=== PATIENT | female | born 1985 | race Caucasian/White ===

== ENCOUNTER 2016-07-13 07:50 | Emergency (ER) | payer BC ==
[2016-07-13 08:12] VITALS: BP 118/63
--- NOTE | 2016-07-13 08:59 | UC ---
Skin Complaint HPI - HPI Summary HPI Summary: The patient comes in today for: 1. Skin/nipple soreness: Onset: one week ago. Palliative/provocative: Nursing makes it worse. Not nursing makes it better. Quality: Soreness. Region: Bilateral nipples. Severity: Nursing 7/10, and when not nursin/10 Time: Comes and goes. Associated symptoms: Fevers: None. Lanolin helped in the past years ago. * - History of Current Complaint Chief Complaint: UCSkin Time Seen by Provider: 07/13/16 08:35 Stated Complaint: PERSONAL Hx Obtained From: Patient Hx Last Menstrual Period: 07/03/16 ?: No - Allergy/Home Medications Allergies/Adverse Reactions: Allergies Allergy/AdvReac Type Severity Reaction Status Date / Time [facility] Allergy Intermediate Hives Verified 07/13/16 08:06 Review of Systems Constitutional: Negative Skin: Rash Eyes: Negative ENT: Negative Respiratory: Negative Cardiovascular: Negative Gastrointestinal: Diarrhea - For the last 2 days. One stool a day. Genitourinary: Negative Motor: Negative All Other Systems Reviewed And Are Negative: Yes PMH/Surg Hx/FS Hx/Imm Hx Previously Healthy: No - "sensitive rectum." Endocrine History Of: Denies: Diabetes, Thyroid Disease, Hyperthyroidism, Hypothyroidism, Dyslipidemia Cardiovascular History Of: Denies: Cardiac Disorders, Hypertension, Pacemaker/ICD, Myocardial Infarction , Congestive Heart Failure, Atrial Fibrillation, Deep Vein Thrombosis, Bleeding Disorders Respiratory History Of: Denies: COPD, Asthma, Bronchitis, Pneumonia, Pulmonary Embolism GI/ History Of: Denies: Gastroesophageal Reflux, Ulcer, Gastrointestinal Bleed, Gall Bladder Disease, Kidney Stones, Diverticulitis, Renal Disease, Urosepsis Neurological History Of: Denies: TIA, CVA, Dementia, Seizures, Migraine Psychological History Of: Denies: Anxiety, Depression, Bipolar Disorder, Schizophrenia, Post Traumatic Stress Disorder Cancer History Of: Denies: Lung Cancer, Colorectal Cancer, Breast Cancer, Prostate Cancer, Cervical Cancer Other History Of: Negative For: HIV, Hepatitis B, Hepatitis C, Anticoagulant Therapy - Surgical History Surgical History: None - Family History Known Family History: Positive: Cardiac Disease, Hypertension - Social History Occupation: Employed Full-time Alcohol Use: None Substance Use Type: None Smoking Status (MU): Never Smoked Tobacco Physical Exam Triage Information Reviewed: Yes Appearance: Well-Appearing, No Pain Distress, Well-Nourished Vital Signs: Initial Vital Signs Temp 97.8 F 07/13/16 08:06 Pulse 76 07/13/16 08:06 Resp 18 07/13/16 08:06 BP 118/63 07/13/16 08:06 Pulse Ox 100 07/13/16 08:06 Vital Signs Reviewed: Yes Eyes: Positive: Conjunctiva Clear. Negative: Discharge ENT: Positive: Hearing grossly normal. Negative: Pharyngeal erythema, Nasal congestion, Nasal drainage, TM bulging, TM dull, TM red, Tonsillar swelling, Tonsillar exudate Dental: Negative: Gross Decay/Caries @, Dental Fracture @ Neck: Positive: Supple, Nontender, No Lymphadenopathy. Negative: Nuchal Rigidity Respiratory: Positive: Lungs clear, No respiratory distress, No accessory muscle use. Negative: Crackles, Wheezing Cardiovascular: Positive: RRR, No Murmur Abdomen Description: Positive: Nontender, No Organomegaly, Soft. Negative: Distended, Guarding Musculoskeletal: Positive: Strength Intact, ROM Intact Neurological: Positive: Alert, Muscle Tone Normal Psychological: Positive: Age Appropriate Behavior, Consolable Skin: Positive: rashes - She has slightly edematous and erythematous nipples ( left worse than the right). There is a small fissure on the left with no signs of cellulitis or purulent drainage. Course/Dx - Diagnoses Provider Diagnoses: dermatitis Discharge - Discharge Plan Condition: Stable Disposition: HOME Patient Education Materials: Dermatitis (ED) Forms: *Work Release Referrals: Lisa Mc MD [Primary Care Provider] - Additional Instructions: Please use [id number] lanolin as needed. Use the prescription ointment only as needed. If you get worse, please be seen again.
== END 2016-07-13 09:16 | disposition home or self-care (01) ==
LOC: UCCORT 07:50
DX: L30.9 Dermatitis, unspecified (principal); Z88.1 Allergy status to other antibiotic agents
CPT/HCPCS: 99212; G0463

== ENCOUNTER 2016-09-21 21:29 | Emergency (ER) | payer BC ==
[2016-09-21 21:49] VITALS: BP 98/76
--- NOTE | 2016-09-21 21:52 | UC ---
Ear Complaint HPI - HPI Summary HPI Summary: The patient comes in today for: 1. Right tinnitus: Onset: "Just tonight." Palliative/provocative: Nothing makes it better or worse. Quality: Ringing Region: Right ear. Severity: 06/19 Time: Constant. Associated symptoms: Fevers: None. Vertigo: None. Meniere's: No history. * - History of Current Complaint Stated Complaint: RT EAR COMPLAINT Time Seen by Provider: 09/21/16 21:44 Hx Obtained From: Patient Hx Last Menstrual Period: 07/03/16 - Allergies/Home Medications Allergies/Adverse Reactions: Allergies Allergy/AdvReac Type Severity Reaction Status Date / Time Cefaclor [From [facility]] Allergy Intermediate Hives Verified 09/21/16 21:49 Home Medications: Home Medications NK [No Home Medications Reported] 09/21/16 [History Confirmed 09/21/16] PMH/Surg Hx/FS Hx/Imm Hx Previously Healthy: No Endocrine History Of: Denies: Diabetes, Thyroid Disease, Hyperthyroidism, Hypothyroidism, Dyslipidemia Cardiovascular History Of: Denies: Cardiac Disorders, Hypertension, Pacemaker/ICD, Myocardial Infarction , Congestive Heart Failure, Atrial Fibrillation, Deep Vein Thrombosis, Bleeding Disorders Respiratory History Of: Denies: COPD, Asthma, Bronchitis, Pneumonia, Pulmonary Embolism GI/ History Of: Denies: Gastroesophageal Reflux, Ulcer, Gastrointestinal Bleed, Gall Bladder Disease, Kidney Stones, Diverticulitis, Renal Disease, Urosepsis Neurological History Of: Denies: TIA, CVA, Dementia, Seizures, Migraine Psychological History Of: Denies: Anxiety, Depression, Bipolar Disorder, Schizophrenia, Post Traumatic Stress Disorder Cancer History Of: Denies: Lung Cancer, Colorectal Cancer, Breast Cancer, Prostate Cancer, Cervical Cancer Other History Of: Negative For: HIV, Hepatitis B, Hepatitis C, Anticoagulant Therapy - Surgical History Surgical History: None - Family History Known Family History: Positive: Cardiac Disease, Hypertension - Social History Alcohol Use: None Substance Use Type: None Smoking Status (MU): Never Smoked Tobacco Review of Systems Constitutional: Negative Skin: Negative Eyes: Negative ENT: Negative Respiratory: Negative Cardiovascular: Negative Gastrointestinal: Negative Genitourinary: Negative Motor: Negative All Other Systems Reviewed And Are Negative: Yes Physical Exam Triage Information Reviewed: Yes Appearance: Well-Appearing, No Pain Distress, Well-Nourished Vital Signs Reviewed: Yes Eyes: Positive: Conjunctiva Clear. Negative: Discharge ENT: Positive: Hearing grossly normal. Negative: Pharyngeal erythema, Nasal congestion, Nasal drainage, TM bulging, TM dull, TM red, Tonsillar swelling, Tonsillar exudate Dental: Negative: Gross Decay/Caries @, Dental Fracture @ Neck: Positive: Supple, Nontender, No Lymphadenopathy. Negative: Nuchal Rigidity Respiratory: Positive: Chest non-tender, Lungs clear, No respiratory distress, No accessory muscle use Cardiovascular: Positive: RRR, No Murmur Abdomen Description: Positive: Nontender, No Organomegaly, Soft. Negative: Distended, Guarding Musculoskeletal: Positive: Strength Intact, ROM Intact, No Edema Neurological: Positive: Alert, Muscle Tone Normal Psychological: Positive: Age Appropriate Behavior, Consolable Skin: Negative: rashes, breakdown Ear Complaint Course/Dx - Differential Dx/Diagnosis Differential Diagnosis/HQI/PQRI: Otitis Externa, Otitis Media Provider Diagnoses: Right tinnitis Discharge - Discharge Plan Condition: Stable Disposition: HOME Patient Education Materials: Tinnitus (ED) Additional Instructions: Please see one of the local ENT providers.
== END 2016-09-21 22:11 | disposition home or self-care (01) ==
LOC: UCCORT 21:29
DX: H93.11 Tinnitus, right ear (principal); Z88.1 Allergy status to other antibiotic agents
CPT/HCPCS: 99211; G0463

== ENCOUNTER 2017-01-23 09:30 | Emergency (ER) | payer BC ==
[2017-01-23 09:40] VITALS: BP 124/70
[2017-01-23] MEDS ORDERED: Ketorolac INJ* 30 MG/ML 1 ML VIAL IM ONE (09:49)
[2017-01-23] MEDS ORDERED: Dexamethasone IV* 4 MG/ML 1 ML (4 MG) IM ONE (09:50)
[2017-01-23] MEDS ORDERED: Acetaminophen TAB* 325 MG PO ONE (09:50)
--- NOTE | 2017-01-23 09:56 | UC ---
Throat Pain/Nasal Eugenio HPI - HPI Summary HPI Summary: Sore throat worsening over the last few days. she went ot the ed and dx with sore throat. no swab obtained. the Sore throat has worsened. - History of Current Complaint Chief Complaint: UCRespiratory Stated Complaint: THROAT SWELLING Time Seen by Provider: 01/23/17 09:40 Hx Obtained From: Patient Hx Last Menstrual Period: 2-3 days Onset/Duration: Gradual Onset Severity: Severe Cough: None Associated Signs & Symptoms: Positive: Dysphagia, Nasal Discharge, Fever. Negative: Wheezing, Hoarseness, Sinus Discomfort, Vomiting, Rash - Epiglottits Risk Factors Epiglottis Risk Factors: Negative - she has had all immunizations. - Allergies/Home Medications Allergies/Adverse Reactions: Allergies Allergy/AdvReac Type Severity Reaction Status Date / Time Cefaclor [From [facility]] Allergy Intermediate Hives Verified 01/23/17 09:40 Home Medications: Home Medications Acetaminophen TAB* [Tylenol TAB*] 1,000 mg PO Q6H PRN 01/23/17 [History Confirmed 01/23/17] Ibuprofen TAB* [Advil TAB*] 0 mg PO Q6H PRN 01/23/17 [History Confirmed 01/23/17 ] PMH/Surg Hx/FS Hx/Imm Hx Previously Healthy: Yes - no prior ent abcess. Other History Of: Negative For: HIV, Hepatitis B, Hepatitis C, Anticoagulant Therapy - Surgical History Surgical History: None - Family History Known Family History: Positive: Cardiac Disease, Hypertension - Social History Occupation: Employed Full-time Alcohol Use: None Substance Use Type: None Smoking Status (MU): Never Smoked Tobacco Review of Systems ENT: Sore Throat, Ear Ache All Other Systems Reviewed And Are Negative: Yes Physical Exam Triage Information Reviewed: Yes Appearance: Well-Appearing - she has some pain with swallowing but otherwise alert, still joking, non toxic and sitting uprightwithout tripod or severe distress., Obese Vital Signs: Initial Vital Signs Temp 100.9 F 01/23/17 09:34 Pulse 131 01/23/17 09:34 Resp 20 01/23/17 09:34 BP 124/70 01/23/17 09:34 Pulse Ox 98 01/23/17 09:34 Vital Signs Reviewed: Yes Eye Exam: Normal ENT: Positive: Pharyngeal erythema, Tonsillar swelling, Tonsillar exudate, Muffled/hoarse voice - slightly muffled voice.. Negative: Trismus Dental Exam: Normal Neck: Positive: Supple, Tenderness @ - mica submandibular tenderness and mild swelling. no uvula deviation, no tonsillar asymmetry.. Negative: Nuchal Rigidity Respiratory Exam: Normal Cardiovascular Exam: Normal Abdominal Exam: Normal Musculoskeletal Exam: Normal Neurological Exam: Normal Psychological Exam: Normal Skin Exam: Normal Throat Pain/Nasal Course/Dx - Course Course Of Treatment: this is most c/w tonsilitis. there is no evidence of ludwigs angina, epiglottitis or peritonsillar abcess. We will aggressivel manage with IM toradol, IM decadron and change antibiotic from azithromycin to augmentin. she has had hives with ceclor. she calls her mother who states she has been well with penicillin. - Differential Dx/Diagnosis Differential Diagnosis/HQI/PQRI: Epiglottitis, Foreign Body, Influenza, Laryngitis, Familia's Angina, Mononucleosis, Otitis Media, Peritonsillar Abscess , Pharyngitis, Sinusitis, Tonsillitis, URI Provider Diagnoses: tonsillitis. Discharge - Discharge Plan Condition: Good Disposition: HOME Prescriptions: Amoxicillin/Clavulanate TAB* [Augmentin TAB 875*] 875 mg PO BID #20 tab Fluconazole 100 MG TAB* [Diflucan 100 MG TAB*] 100 mg PO DAILY #3 tab Methylprednisolone [Medrol Dosepak 4 MG*] 4 mg PO .SEE BENNY INSTRUCTION #21 tab Patient Education Materials: Tonsillitis (ED) Forms: *Work Release Referrals: Lisa Mc MD [Primary Care Provider] - 1 Day
== END 2017-01-23 11:04 | disposition home or self-care (01) ==
LOC: UCCORT 09:30
DX: J03.90 Acute tonsillitis, unspecified (principal); R09.81 Nasal congestion; Z88.1 Allergy status to other antibiotic agents
CPT/HCPCS: 87651; 96372; 99212; A9270-GY; G0463; J1100; J1885

== ENCOUNTER 2017-02-21 17:59 | Emergency (ER) | payer BC ==
[2017-02-21 19:25] VITALS: BP 108/65
[2017-02-21] MEDS ORDERED: Amoxicillin/Clavulanate TAB* 875 MG PO ONE (19:40)
[2017-02-21] MEDS ORDERED: Ketorolac INJ* 60 MG/2 ML VIAL IM ONE (19:40)
--- NOTE | 2017-02-21 19:50 | UC ---
Throat Pain/Nasal Eugenio HPI - HPI Summary HPI Summary: THREE DAYS OF SORE THROAT FEVER. HAS HAD ONE MONTH OF ABDOMINAL PAIN BUT HAS PRIMARY CARE APPOINTMENT NEXT WEEK TO CONTINUE AQDDRESSING THE ISSUE; NO CHANGE IN SYMPTOMS OF CONCERN. HERE FOR SORE THROAT AND FEVER. - History of Current Complaint Chief Complaint: UCRespiratory Stated Complaint: FEVER/SORE THROAT Time Seen by Provider: 02/21/17 19:18 Hx Obtained From: Patient Hx Last Menstrual Period: 02/12/17 Onset/Duration: Gradual Onset, Lasting Days, Still Present Severity: Moderate Cough: None Associated Signs & Symptoms: Positive: Hoarseness, Fever - Epiglottits Risk Factors Epiglottis Risk Factors: Negative - Allergies/Home Medications Allergies/Adverse Reactions: Allergies Allergy/AdvReac Type Severity Reaction Status Date / Time Cefaclor [From [facility]] Allergy Intermediate Hives Verified 02/21/17 19:25 PMH/Surg Hx/FS Hx/Imm Hx Previously Healthy: Yes Other History Of: Negative For: HIV, Hepatitis B, Hepatitis C, Anticoagulant Therapy - Surgical History Surgical History: None - Family History Known Family History: Positive: Cardiac Disease, Hypertension - Social History Occupation: Employed Full-time Lives: With Family Alcohol Use: None Substance Use Type: None Smoking Status (MU): Never Smoked Tobacco - Immunization History Most Recent Influenza Vaccination: no Review of Systems Constitutional: Fever, Chills, Fatigue Skin: Negative Eyes: Negative ENT: Sore Throat Respiratory: Negative Cardiovascular: Negative Gastrointestinal: Negative Genitourinary: Negative Motor: Negative Neurovascular: Negative Musculoskeletal: Negative Neurological: Negative Psychological: Negative Is Patient Immunocompromised?: No All Other Systems Reviewed And Are Negative: Yes Physical Exam Triage Information Reviewed: Yes Appearance: Well-Appearing, No Pain Distress, Well-Nourished Vital Signs: Initial Vital Signs Temp 101.9 F 02/21/17 19:19 Pulse 112 02/21/17 19:19 Resp 18 02/21/17 19:19 BP 108/65 02/21/17 19:19 Pulse Ox 98 02/21/17 19:19 Vital Signs Reviewed: Yes Eye Exam: Normal ENT Exam: Normal ENT: Positive: Pharyngeal erythema, TM dull, Tonsillar exudate Dental Exam: Normal Neck exam: Normal Neck: Positive: Supple, Nontender, No Lymphadenopathy Respiratory Exam: Normal Respiratory: Positive: Chest non-tender, Lungs clear, Normal breath sounds, No respiratory distress, No accessory muscle use Cardiovascular Exam: Normal Cardiovascular: Positive: RRR, No Murmur, Pulses Normal, Brisk Capillary Refill Abdominal Exam: Normal Abdomen Description: Positive: Nontender, No Organomegaly Musculoskeletal Exam: Normal Musculoskeletal: Positive: Strength Intact, ROM Intact Neurological Exam: Normal Psychological Exam: Normal Skin Exam: Normal Throat Pain/Nasal Course/Dx - Differential Dx/Diagnosis Differential Diagnosis/HQI/PQRI: Pharyngitis, Sinusitis, Tonsillitis, URI Provider Diagnoses: STREP TONSILITIS Discharge - Discharge Plan Condition: Stable Disposition: HOME Prescriptions: Amoxicillin/Clavulanate TAB* [Augmentin TAB 875*] 875 mg PO BID #20 tab Patient Education Materials: Strep Throat (ED) Forms: *Work Release Referrals: Lisa Mc MD [Primary Care Provider] -
== END 2017-02-21 20:08 | disposition home or self-care (01) ==
LOC: UCCORT 17:59
DX: J02.0 Streptococcal pharyngitis (principal)
CPT/HCPCS: 87651; 96372; 99212; A9270-GY; G0463; J1885

== ENCOUNTER 2017-07-11 08:08 | Emergency (ER) | payer BC, OTHER ==
[2017-07-11 09:38] VITALS: BP 120/83
--- NOTE | 2017-07-11 10:00 | UC ---
Lower Extremity/Ankle HPI - HPI Summary HPI Summary: 32F with work injury. pt slipped and fell on the stairs at work injuring L ankle. pt was taken to the [facility] ED but at that time denied an xray. pt now requests an xray. [ End ] - History of Current Complaint Chief Complaint: UCTrauma Stated Complaint: WC-RT ANKLE INJURY Time Seen by Provider: 07/11/17 09:59 Hx Obtained From: Patient Hx Last Menstrual Period: 06/29/17 ?: No Onset/Duration: Sudden Onset Severity Initially: Moderate Severity Currently: Mild Pain Intensity: 0 - Allergies/Home Medications Allergies/Adverse Reactions: Allergies Allergy/AdvReac Type Severity Reaction Status Date / Time MS Cefaclor [From [facility]] Allergy Intermediate Hives Verified 07/11/17 09:38 PMH/Surg Hx/FS Hx/Imm Hx Previously Healthy: Yes Other History Of: Negative For: HIV, Hepatitis B, Hepatitis C, Anticoagulant Therapy - Surgical History Surgical History: None - Family History Known Family History: Positive: Cardiac Disease, Hypertension - Social History Occupation: Employed Full-time Alcohol Use: None Substance Use Type: None Smoking Status (MU): Never Smoked Tobacco - Immunization History Most Recent Influenza Vaccination: no Review of Systems Musculoskeletal: Arthralgia Is Patient Immunocompromised?: No All Other Systems Reviewed And Are Negative: Yes Physical Exam Triage Information Reviewed: Yes Appearance: Well-Appearing, No Pain Distress, Well-Nourished Vital Signs: Initial Vital Signs Temp 97.6 F 07/11/17 09:32 Pulse 81 07/11/17 09:32 Resp 18 07/11/17 09:32 BP 120/83 07/11/17 09:32 Pulse Ox 100 07/11/17 09:32 Vital Signs Reviewed: Yes Eyes: Positive: Conjunctiva Clear Musculoskeletal: Positive: Strength Intact, ROM Intact, No Edema, Other: - mild medial MTP tenderness. no effusion. no ecchymosis. no erythema. FROM. strength 5 /5 b/l LE. cap refill < 3 sec/ brisk peripheral pulses Neurological Exam: Normal Psychological Exam: Normal Skin Exam: Normal Lower Extremity Course/Dx - Course Course Of Treatment: iMPRESSION: NO ACUTE OSSEOUS INJURY. IF SYMPTOMS PERSIST, RECOMMEND REPEAT IMAGING. - Differential Dx/Diagnosis Differential Diagnosis/HQI/PQRI: Sprain, Strain Provider Diagnoses: right ankle/foot pain Discharge - Discharge Plan Condition: Good Disposition: HOME Patient Education Materials: Ankle Sprain (ED) Referrals: Lisa Mc MD [Primary Care Provider] - 4 Days Additional Instructions: Your xray today was negative no fracture is present. If your symptoms persist please return for follow up .
--- NOTE | 2017-07-11 10:47 | RAD ---
HISTORY: Pain status post fall COMPARISONS: None VIEWS: 3, Frontal, lateral, and oblique views of the right foot FINDINGS: BONE DENSITY: Normal. BONES: There is no displaced fracture. There are plantar and posterior calcaneal enthesophytes. JOINTS: There is no arthropathy. ALIGNMENT: There is no dislocation. SOFT TISSUES: Unremarkable. OTHER FINDINGS: None. IMPRESSION: NO ACUTE OSSEOUS INJURY. IF SYMPTOMS PERSIST, RECOMMEND REPEAT IMAGING.
== END 2017-07-11 11:10 | disposition home or self-care (01) ==
LOC: UCCORT 08:08
DX: M25.572 Pain in left ankle and joints of left foot (principal); M79.672 Pain in left foot; W01.0XXA Fall on same level from slipping, tripping and stumbling without subsequent striking against object, initial encounter; Y92.89 Other specified places as the place of occurrence of the external cause; W10.9XXA Fall (on) (from) unspecified stairs and steps, initial encounter
CPT/HCPCS: 99211; G0463

== ENCOUNTER 2017-12-22 14:10 | Emergency (ER) | payer BC ==
[2017-12-22 14:29] VITALS: BP 125/70
--- NOTE | 2017-12-22 14:34 | UC ---
Ear Complaint HPI - HPI Summary HPI Summary: 32 y/o female presents to the urgent care c/o left ear pain since last night. Pt reports she has Hx of ear infections. Pain started last night, however she has felt ear pressure for the last 3 days. Pain is 6/10 today. She has not taken anything to alleviate symptoms. Pt denies dizziness, fever, CAPUTO, SOB, chest pain, abdominal pain, N/V/D. - History of Current Complaint Chief Complaint: UCEar Stated Complaint: LEFT EAR PAIN Time Seen by Provider: 12/22/17 14:32 Hx Obtained From: Patient Hx Last Menstrual Period: 12/08/17 ?: No Onset/Duration: Gradual Onset, Lasting Days - 1 day, Still Present, Worse Since - this morning Severity Initially: Mild Severity Currently: Moderate Pain Intensity: 6 Pain Scale Used: 0-10 Numeric Aggravating Factors: Nothing Alleviating Factors: Nothing Associated Signs/Symptoms: Negative: Hearing Loss - Allergies/Home Medications Allergies/Adverse Reactions: Allergies Allergy/AdvReac Type Severity Reaction Status Date / Time cefaclor [From [facility]] Allergy Hives Verified 12/22/17 14:34 PMH/Surg Hx/FS Hx/Imm Hx Previously Healthy: Yes - Pt denies PMHX Other History Of: Negative For: HIV, Hepatitis B, Hepatitis C, Anticoagulant Therapy - Surgical History Surgical History: Yes Surgery Procedure, Year, and Place: EAR TUBES CHILD, ORAL SURGERY FOR WISDOM TEETH - Family History Known Family History: Positive: Cardiac Disease, Hypertension - Social History Occupation: Employed Full-time Lives: With Family Alcohol Use: None Substance Use Type: None Smoking Status (MU): Never Smoked Tobacco - Immunization History Most Recent Influenza Vaccination: no Review of Systems Constitutional: Negative Skin: Negative Eyes: Negative ENT: Ear Ache - LF ear pain Respiratory: Negative Cardiovascular: Negative Gastrointestinal: Negative Genitourinary: Negative Motor: Negative Neurovascular: Negative Musculoskeletal: Negative Neurological: Negative Psychological: Negative Is Patient Immunocompromised?: No All Other Systems Reviewed And Are Negative: Yes Physical Exam - Summary Physical Exam Summary: Vital signs: reviewed General: well developed, well nourished obese female sitting in the examining table w/o any apparent distress Skin: [place], warm and dry, no evidence of atopic dermatitis, psoriasis, seborrhea. HEENT: -Head: atraumatic, non tender; no scalp dermatitis. -Eyes: sclera and conjunctiva clear, PERRLA, EOMI -Ears: no pre- or postauricular lymphadenopathy or erythema; RT external ear canal clear, Rt TM WNL. LF external ear canal clear and LF TM injected w/ erythema and yellowish discahrge.No perforation. -Nose/Face: erythematous and edematous nasal mucosa with clear rhinorrhea, no frontal or maxillary sinus tender to palpation. -Mouth/Throat: Mucous membrane moist, posterior pharynx clear, no erythema or exudates. Neck: supple, FROM, nontender, no lymphadenopathy, no meningismus. Chest: Clear to auscultation, normal breath sounds Abd: soft, Bowel sounds active, Nontender. Back: no spinal or CVAT Neuro: A&O x4, GCS 15, no focal neuro deficits, normal behavior for age. Triage Information Reviewed: Yes Vital Signs: Initial Vital Signs Temp 98.2 F 12/22/17 14:23 Pulse 92 12/22/17 14:23 Resp 16 12/22/17 14:23 BP 125/70 12/22/17 14:23 Pulse Ox 99 12/22/17 14:23 Ear Complaint Course/Dx - Course Course Of Treatment: 32 y/o female presents to the urgent care c/o left ear pain since last night. Pt reports she has Hx of ear infections. Pain started last night, however she has felt ear pressure for the last 3 days. Pain is 6/10 today. She has not taken anything to alleviate symptoms. Pt denies dizziness, fever, CAPUTO, SOB, chest pain, abdominal pain, N/V/D. Hx obtained. Pt w/ left otitis media on examination. Pt Rx Amoxicillin PO and ibuprofen to alleviate otalgia. Pt advised if symptoms do not improve or worsen to return to the urgent care or f/u with PCP for further evaluation and treatment. Pt understood and agreed w/ plan of care. - Differential Dx/Diagnosis Differential Diagnosis/HQI/PQRI: Otitis Externa, Otitis Media, Perforated TM, URI Provider Diagnoses: 1- left otitis media. 2-otalgia Discharge - Sign-Out/Discharge Documenting (check all that apply): Patient Departure - D/C home - Discharge Plan Condition: Stable Disposition: HOME Prescriptions: Amoxicillin PO (*) [Amoxicillin 875 MG (*)] 875 mg PO BID #20 tab Ibuprofen TAB* [Motrin TAB* 600 MG] 600 mg PO Q6H PRN #20 tab PRN Reason: otalgia Patient Education Materials: Ear Infection (ED) Referrals: Lisa Mc MD [Primary Care Provider] - 3 Days Additional Instructions: 1- Please take the full course of the antibiotic to avoid resistance. 2-Please take ibuprofen PO q6-8hrs prn as instructed after meals to alleviate pain. 3-If symptoms do not improve or worsen please return to the urgent care or f/u with your PCP in 3 days for further evaluation and treatment. - Billing Disposition and Condition Condition: STABLE Disposition: Home
== END 2017-12-22 14:57 | disposition home or self-care (01) ==
LOC: UCCORT 14:10
DX: H66.92 Otitis media, unspecified, left ear (principal); H92.02 Otalgia, left ear; E66.9 Obesity, unspecified; Z88.1 Allergy status to other antibiotic agents
CPT/HCPCS: 99212; G0463

== ENCOUNTER 2018-03-24 09:08 | Emergency (ER) | payer BC ==
[2018-03-24 09:27] VITALS: BP 132/83
[2018-03-24] MEDS ORDERED: Tetan/Diph/Pertus SYR(Tdap)* 0.5 ML SYR(BOOSTRIX) use SYR IM ONE (10:08)
--- NOTE | 2018-03-24 10:40 | ED ---
Lower Extremity - HPI Summary HPI Summary: Patient presents with concern for retained foreign body in her left heel. She reports her son excellently broken Keny jar in her bathroom last night and after cleaning up discharged, she stepped on something sharp. She reports her tried to extrude this last night however was unsuccessful as she still feels something in her heel. No meche blood loss from the area. She has a small opening in this area and applied drawing salve last night. Does not feel that he had checked his come out completely. She does have some pain when she puts weight on her heel with ambulation. Denies numbness, tingling, weakness. She is unsure of her last tetanus vaccine and would like one today. - History of Current Complaint Chief Complaint: Reinier Stated Complaint: SHARD OF GLASS IN FOOT Time Seen by Provider: 03/24/18 09:56 Hx Obtained From: Patient Hx Last Menstrual Period: 12/08/17 Pain Intensity: 1 - Allergies/Home Medications Allergies/Adverse Reactions: Allergies Allergy/AdvReac Type Severity Reaction Status Date / Time cefaclor [From [facility]] Allergy Hives Verified 03/24/18 09:27 Home Medications: Home Medications NK [No Home Medications Reported] 03/24/18 [History Confirmed 03/24/18] PMH/Surg Hx/FS Hx/Imm Hx Previously Healthy: Yes Endocrine/Hematology History: Denies: Hx Anticoagulant Therapy, Hx Diabetes, Hx Thyroid Disease, Autoimmune Disease Cardiovascular History: Denies: Hx Congestive Heart Failure, Hx Deep Vein Thrombosis, Hx Hypertension , Hx Myocardial Infarction, Hx Pacemaker/ICD Respiratory History: Denies: Hx Asthma, Hx Chronic Obstructive Pulmonary Disease (COPD), Hx Lung Cancer, Hx Pneumonia, Hx Pulmonary Embolism GI History: Reports: Other GI Disorders - irritable rectal syndrome - bleeding per rectum w/ certain foods/stress Denies: Hx Gall Bladder Disease, Hx Gastrointestinal Bleed, Hx Ulcer, Hx Urosepsis History: Denies: Hx Kidney Stones, Hx Renal Disease Sensory History: Reports: Hx Contacts or Glasses Denies: Hx Hearing Aid Opthamlomology History: Reports: Hx Contacts or Glasses Neurological History: Denies: Hx Dementia, Hx Migraine, Hx Seizures, Hx Transient Ischemic Attacks (TIA) Psychiatric History: Denies: Hx Anxiety, Hx Depression, Hx Panic Disorder, Hx Schizophrenia, Hx Bipolar Disorder - Surgical History Surgery Procedure, Year, and Place: EAR TUBES CHILD, ORAL SURGERY FOR WISDOM TEETH - Immunization History Immunizations Up to Date: Unable to Obtain/Confirm Infectious Disease History: No Infectious Disease History: Denies: Hx Clostridium Difficile, Hx Hepatitis, Hx Human Immunodeficiency Virus (HIV), Hx of Known/Suspected MRSA, Hx Shingles, Hx Tuberculosis, Hx Known/ Suspected VRE, Hx Known/Suspected VRSA, History Other Infectious Disease, Traveled Outside the [place] in Last 30 Days - Family History Known Family History: Positive: Cardiac Disease, Hypertension - Social History Occupation: Employed Part-time - hourly through [employer] Lives: With Family Alcohol Use: Rare Hx Substance Use: No Substance Use Type: Reports: None Hx Tobacco Use: No Smoking Status (MU): Never Smoked Tobacco Review of Systems Constitutional: Negative Negative: Fever, Chills Positive: no symptoms reported Positive: Myalgia. Negative: Arthralgia, Decreased ROM, Edema Skin: Other - small opening in heel Neurological: Negative Psychological: Normal All Other Systems Reviewed And Are Negative: Yes Physical Exam Triage Information Reviewed: Yes Vital Signs On Initial Exam: Initial Vitals Temp Pulse Resp BP Pulse Ox 98.0 F 92 18 132/83 99 03/24/18 09:21 03/24/18 09:21 03/24/18 09:21 03/24/18 09:21 03/24/18 09:21 Vital Signs Reviewed: Yes Appearance: Positive: Well-Appearing, Obese Skin: Positive: Warm, Skin Color Reflects Adequate Perfusion, Dry - 0.25 linear lac to Lt plantar heel - no meche bleeding and possible FB sensation w/ palpation vs. induration but nothing sharp appreciated (pt reports feeling pressure w/ palpation - no sharp pain) - no erythema, no edema, no streaking Head/Face: Positive: Normal Head/Face Inspection Eyes: Positive: EOMI ENT: Positive: Hearing grossly normal Respiratory/Lung Sounds: Positive: Breath Sounds Present Cardiovascular: Positive: Pulses are Symmetrical in both Upper and Lower Extremities. Negative: Leg Edema Left, Leg Edema Right Musculoskeletal: Positive: Normal, Strength/ROM Intact - walks on toes to prevent heel strike Neurological: Positive: Normal, Sensory/Motor Intact, Alert, Oriented to Person Place, Time, CN Intact II-III Psychiatric: Positive: Normal Diagnostics - Vital Signs Vital Signs Temp Pulse Resp BP Pulse Ox 03/24/18 09:21 98.0 F 92 18 132/83 99 - Laboratory Lab Statement: Any lab studies that have been ordered have been reviewed, and results considered in the medical decision making process. Lower Extremity Course/Dx - Course Course Of Treatment: XR: no FB identified - Diagnoses Provider Diagnoses: Puncture wound of left heel Discharge - Sign-Out/Discharge Documenting (check all that apply): Patient Departure All imaging exams completed and their final reports reviewed: Yes - Discharge Plan Condition: Stable Disposition: HOME Patient Education Materials: Puncture Wound (ED), Soft Tissue Foreign Body (ED) Forms: *Work Release Referrals: Lisa Mc MD [Primary Care Provider] - Additional Instructions: Your x-ray today did not show a foreign body of glass nor did your physical exam however there may be a tiny piece of glass still in your heel. It is important that you soak this in a warm soapy soaks 2 times a day in an effort to keep the tissue soft and wound open in an effort to draw out any residual foreign body should there be one present. This will also aid in the healing process and reduce swelling and pain. You may apply heat or ice to the area and take ibuprofen as needed for pain and swelling. *If pain persists or gets worse and/or is associated with redness, swelling, streaking, purulent drainage, fever or chills - seek medical attention. - Billing Disposition and Condition Condition: STABLE Disposition: Home
--- NOTE | 2018-03-24 10:40 | RAD ---
HISTORY: Stepped on glass - Lt heel COMPARISONS: None VIEWS: 4 , lateral, axial, and bilateral oblique views of the left calcaneus FINDINGS: BONE DENSITY: Normal. BONES: There is no displaced fracture. There are plantar and posterior calcaneal enthesophytes. JOINTS: There is no arthropathy. ALIGNMENT: There is no dislocation. SOFT TISSUES: Unremarkable. OTHER FINDINGS: There is no radiopaque foreign body. IMPRESSION: HEEL SPURS. NO RADIOPAQUE FOREIGN BODY. NO ACUTE OSSEOUS INJURY. IF SYMPTOMS PERSIST, RECOMMEND REPEAT IMAGING.
== END 2018-03-24 11:06 | disposition home or self-care (01) ==
LOC: UCEAST 09:08
DX: S91.332A Puncture wound without foreign body, left foot, initial encounter (principal); W22.8XXA Striking against or struck by other objects, initial encounter; Y92.9 Unspecified place or not applicable; Z88.1 Allergy status to other antibiotic agents
CPT/HCPCS: 90471; 90715; 99211; G0463

== ENCOUNTER 2018-08-08 08:13 | Emergency (ER) | payer BC ==
[2018-08-08 08:39] VITALS: BP 121/53
[2018-08-08 08:51] LABS: Influenza A Molecular POSITIVE (Negative)
--- NOTE | 2018-08-08 09:05 | UC ---
Respiratory Complaint HPI - HPI Summary HPI Summary: 33 yo male ill x 36 hours with f/c, runny nose, cough, sore throat, headache, myalgias - History of Current Complaint Chief Complaint: UCRespiratory Stated Complaint: COUGH,ACHY,CONGESTION Time Seen by Provider: 08/08/18 08:40 Hx Obtained From: Patient Hx Last Menstrual Period: "Two, three weeks ago..." Onset/Duration: Gradual Onset, Lasting Hours Timing: Constant Severity Initially: Mild Severity Currently: Moderate Pain Intensity: 4 Pain Scale Used: 0-10 Numeric Character: Cough: Nonproductive Aggravating Factors: Nothing Alleviating Factors: Nothing Associated Signs And Symptoms: Positive: Fever, Chills, URI, Nasal Congestion, Sinus Discomfort - Allergies/Home Medications Allergies/Adverse Reactions: Allergies Allergy/AdvReac Type Severity Reaction Status Date / Time cefaclor [From [facility]] Allergy Hives Verified 08/08/18 08:36 Home Medications: Home Medications Acetaminophen [Acetaminophen Extra Strength] 1,000 mg PO Q6H PRN 08/08/18 [ History Confirmed 08/08/18] PMH/Surg Hx/FS Hx/Imm Hx Previously Healthy: Yes Other History Of: Negative For: HIV, Hepatitis B, Hepatitis C, Anticoagulant Therapy - Surgical History Surgical History: Yes Surgery Procedure, Year, and Place: EAR TUBES CHILD, ORAL SURGERY FOR WISDOM TEETH - Family History Known Family History: Positive: Cardiac Disease, Hypertension - Social History Alcohol Use: None Substance Use Type: None Smoking Status (MU): Never Smoked Tobacco - Immunization History Most Recent Influenza Vaccination: no Most Recent Tetanus Shot: 03/24/18 Review of Systems All Other Systems Reviewed And Are Negative: Yes Constitutional: Positive: Fever, Chills, Fatigue Skin: Positive: Negative Eyes: Positive: Negative ENT: Positive: Sore Throat, Nasal Discharge, Sinus Congestion Respiratory: Positive: Cough Cardiovascular: Positive: Negative Gastrointestinal: Positive: Negative Genitourinary: Positive: Negative Motor: Positive: Negative Neurovascular: Positive: Negative Musculoskeletal: Positive: Myalgia Neurological: Positive: Headache Psychological: Positive: Negative Physical Exam Vital Signs: Initial Vital Signs Temp 99.9 F 08/08/18 08:35 Pulse 104 08/08/18 08:35 Resp 20 08/08/18 08:35 BP 121/53 08/08/18 08:35 Pulse Ox 99 08/08/18 08:35 Respiratory Course/Dx - Course Course Of Treatment: pulse ox 99% on RA comment: normal/not hypoxic. influena A (+) - Differential Dx/Diagnosis Differential Diagnosis/HQI/PQRI: Influenza Provider Diagnosis: Influenza A Discharge - Sign-Out/Discharge Documenting (check all that apply): Patient Departure All imaging exams completed and their final reports reviewed: No Studies - Discharge Plan Condition: Stable Disposition: HOME Prescriptions: Benzonatate CAP* [Tessalon CAP*] 100 - 200 mg PO TID PRN #28 cap PRN Reason: Cough Oseltamivir CAP* [Tamiflu CAP*] 75 mg PO BID #10 cap Patient Education Materials: Influenza (ED) Forms: *Work Release Referrals: Lisa Mc MD [Primary Care Provider] - 4 Days (if not better) - Billing Disposition and Condition Condition: STABLE Disposition: Home
== END 2018-08-08 09:16 | disposition home or self-care (01) ==
LOC: UCCORT 08:13
DX: J10.1 Influenza due to other identified influenza virus with other respiratory manifestations (principal); Z88.1 Allergy status to other antibiotic agents
CPT/HCPCS: 99212; G0463

== ENCOUNTER 2018-10-31 14:58 | Emergency (ER) | payer MEDICAID ==
[2018-10-31 16:26] VITALS: BP 121/83
--- NOTE | 2018-10-31 16:45 | UC ---
Back Pain HPI - HPI Summary HPI Summary: BACK FELT OFF LAST PM. UPON WAKING THIS AM HAD MORE PAIN IN L SIDE OF BACK. NO INJURY. HAS HAD SOME LOOSE STOOL. - History of Current Complaint Chief Complaint: UCBackPain Stated Complaint: BACK PAIN Time Seen by Provider: 10/31/18 16:36 Hx Obtained From: Patient Hx Last Menstrual Period: 10/08/18 Timing: Constant Pain Intensity: 1 Aggravating Factor(s): Movement Alleviating Factor(s): Other - REMAINING STILL Associated Signs And Symptoms: Negative: Fever, Weakness, Numbness, Tingling, Abdominal Pain, Flank Pain, Bladder Incontinence, Bowel Incontinence - Risk Factors AAA Risk Factors: Negative TAD Risk Factors: Negative Cauda Equina Risk Factors: Negative Epidural Abscess Risk Factors: Negative - Allergies/Home Medications Allergies/Adverse Reactions: Allergies Allergy/AdvReac Type Severity Reaction Status Date / Time [facility] Allergy Hives Verified 10/31/18 16:26 PMH/Surg Hx/FS Hx/Imm Hx Previously Healthy: Yes Other History Of: Negative For: HIV, Hepatitis B, Hepatitis C, Anticoagulant Therapy - Surgical History Surgical History: Yes Surgery Procedure, Year, and Place: EAR TUBES CHILD, ORAL SURGERY FOR WISDOM TEETH - Family History Known Family History: Positive: Cardiac Disease, Hypertension - Social History Lives: With Family Alcohol Use: None Substance Use Type: None Smoking Status (MU): Never Smoked Tobacco - Immunization History Most Recent Influenza Vaccination: no Most Recent Tetanus Shot: 03/24/18 Review of Systems All Other Systems Reviewed And Are Negative: Yes Constitutional: Negative: Fever Gastrointestinal: Negative: Abdominal Pain Musculoskeletal: Positive: Decreased ROM - BACK Neurological: Negative: Weakness, Paresthesia, Numbness Physical Exam Triage Information Reviewed: Yes Appearance: Well-Appearing Vital Signs: Initial Vital Signs Temp 98 F 10/31/18 16:19 Pulse 85 10/31/18 16:19 Resp 16 10/31/18 16:19 BP 121/83 10/31/18 16:19 Pulse Ox 99 10/31/18 16:19 Vital Signs Reviewed: Yes Eyes: Positive: Conjunctiva Clear Neck: Positive: Supple, Nontender, No Lymphadenopathy, Other: - c-spine non tender Respiratory: Positive: Lungs clear Cardiovascular: Positive: RRR Abdomen Description: Positive: Nontender, No Organomegaly, Soft. Negative: Pulsatile Mass Bowel Sounds: Positive: Present Musculoskeletal: Positive: Other: - Back: no grosss deformity. spine is non tender. rom limited by pain/spasm. 5/5 strenght, 2+ reflexes x4. sensation intactx4. no saddle anesthesia. steady gait. Neurological: Positive: Alert Psychological: Positive: Age Appropriate Behavior Skin Exam: Normal Back Pain Course/Dx - Differential Dx/Diagnosis Differential Diagnosis/HQI/PQRI: Other - no concern for infection, fx, acute abdomen or cauda equina. Provider Diagnosis: Back pain Discharge - Sign-Out/Discharge Documenting (check all that apply): Patient Departure All imaging exams completed and their final reports reviewed: No Studies - Discharge Plan Condition: Stable Disposition: HOME Prescriptions: Cyclobenzaprine TAB* [Flexeril 10 MG TAB*] 10 mg PO TID PRN #10 tab PRN Reason: Pain - Back Naproxen [Naprosyn 500 mg tab] 500 mg PO BID 5 Days #10 tablet Patient Education Materials: Back Pain (ED) Referrals: Mariann Valdez [Primary Care Provider] - 6 Days Additional Instructions: FOLLOW UP SCHEDULED - Billing Disposition and Condition Condition: STABLE Disposition: Home
== END 2018-10-31 16:57 | disposition home or self-care (01) ==
LOC: UCCORT 14:58
DX: M54.9 Dorsalgia, unspecified (principal); Z88.1 Allergy status to other antibiotic agents
CPT/HCPCS: 99212; G0463

== ENCOUNTER 2018-11-18 09:24 | Emergency (ER) | payer MEDICAID ==
[2018-11-18 10:23] VITALS: BP 114/76
--- NOTE | 2018-11-18 11:19 | ED ---
Throat Pain/Nasal Congestion - HPI Summary HPI Summary: 33 yr old female with the complaint of sinus pressure, post nasal drip, coughing. Onset of symptoms three days. She has a history of recurrent sinus infections over her life. She denies fever. No other complaints. - History of Current Complaint Chief Complaint: UCGeneralIllness Time Seen by Provider: 11/18/18 11:05 - Allergies/Home Medications Allergies/Adverse Reactions: Allergies Allergy/AdvReac Type Severity Reaction Status Date / Time cefaclor [From Ceclor] Allergy Hives Verified 11/18/18 10:24 Home Medications: Home Medications Acetaminophen [Tylenol] 1 tab PO ONCE 11/18/18 [History Confirmed 11/18/18] PMH/Surg Hx/FS Hx/Imm Hx Endocrine/Hematology History: Denies: Hx Anticoagulant Therapy, Hx Diabetes, Hx Thyroid Disease Cardiovascular History: Denies: Hx Congestive Heart Failure, Hx Deep Vein Thrombosis, Hx Hypertension , Hx Myocardial Infarction, Hx Pacemaker/ICD Respiratory History: Denies: Hx Asthma, Hx Chronic Obstructive Pulmonary Disease (COPD), Hx Lung Cancer, Hx Pneumonia, Hx Pulmonary Embolism GI History: Reports: Other GI Disorders - irritable rectal syndrome - bleeding per rectum w/ certain foods/stress Denies: Hx Gall Bladder Disease, Hx Gastrointestinal Bleed, Hx Ulcer, Hx Urosepsis History: Denies: Hx Kidney Stones, Hx Renal Disease Sensory History: Reports: Hx Contacts or Glasses Denies: Hx Hearing Aid Opthamlomology History: Reports: Hx Contacts or Glasses Neurological History: Denies: Hx Dementia, Hx Migraine, Hx Seizures, Hx Transient Ischemic Attacks (TIA) Psychiatric History: Denies: Hx Anxiety, Hx Depression, Hx Panic Disorder, Hx Schizophrenia, Hx Bipolar Disorder - Surgical History Surgery Procedure, Year, and Place: EAR TUBES CHILD, ORAL SURGERY FOR WISDOM TEETH Infectious Disease History: No Infectious Disease History: Denies: Hx Clostridium Difficile, Hx Hepatitis, Hx Human Immunodeficiency Virus (HIV), Hx of Known/Suspected MRSA, Hx Shingles, Hx Tuberculosis, Hx Known/ Suspected VRE, Hx Known/Suspected VRSA, History Other Infectious Disease, Traveled Outside the [place] in Last 30 Days - Family History Known Family History: Positive: Cardiac Disease, Hypertension - Social History Occupation: Employed Full-time Lives: With Family Alcohol Use: None Hx Substance Use: No Substance Use Type: Reports: None Hx Tobacco Use: No Smoking Status (MU): Never Smoked Tobacco Review of Systems Constitutional: Negative Positive: Nasal Discharge Positive: Cough All Other Systems Reviewed And Are Negative: Yes Physical Exam Triage Information Reviewed: Yes Vital Signs On Initial Exam: Initial Vitals Temp Pulse Resp BP Pulse Ox 97.6 F 83 16 114/76 97 11/18/18 10:16 11/18/18 10:16 11/18/18 10:16 11/18/18 10:16 11/18/18 10:16 Vital Signs Reviewed: Yes Appearance: Positive: Well-Appearing, No Pain Distress Skin: Positive: Warm, Skin Color Reflects Adequate Perfusion Head/Face: Positive: Normal Head/Face Inspection Eyes: Positive: EOMI, ABEL ENT: Positive: Nasal congestion, TMs normal, Sinus tenderness Neck: Positive: Nontender Respiratory/Lung Sounds: Positive: Clear to Auscultation, Breath Sounds Present Cardiovascular: Positive: RRR. Negative: Murmur Abdomen Description: Positive: Distended Musculoskeletal: Positive: Strength/ROM Intact Neurological: Positive: Sensory/Motor Intact, Alert, Oriented to Person Place, Time, CN Intact II-III Psychiatric: Positive: Normal - [place] Coma Scale Best Eye Response: 4 - Spontaneous Best Motor Response: 6 - Obeys Commands Best Verbal Response: 5 - Oriented Coma Scale Total: 15 Diagnostics - Vital Signs Vital Signs Temp Pulse Resp BP Pulse Ox 11/18/18 10:16 97.6 F 83 16 114/76 97 - Laboratory Lab Statement: Any lab studies that have been ordered have been reviewed, and results considered in the medical decision making process. EENT Course/Dx - Course Course Of Treatment: 33 yr old with sinusitis. Rx with doxycycline - Diagnoses Provider Diagnoses: Sinusitis Discharge - Sign-Out/Discharge Documenting (check all that apply): Patient Departure All imaging exams completed and their final reports reviewed: No Studies - Discharge Plan Condition: Good Disposition: HOME Prescriptions: DOXYcycline CAP(*) [DOXYcycline 100MG CAP(*)] 100 mg PO BID #20 cap Patient Education Materials: Sinusitis (ED) Referrals: Mariann Valdez [Primary Care Provider] - 2 Days - Billing Disposition and Condition Condition: GOOD Disposition: Home
== END 2018-11-18 11:30 | disposition home or self-care (01) ==
LOC: UCCORT 09:24
DX: J32.9 Chronic sinusitis, unspecified (principal)
CPT/HCPCS: 99212; G0463

== ENCOUNTER 2019-01-02 08:04 | Emergency (ER) | payer MEDICAID, OTHER ==
[2019-01-02 08:22] VITALS: BP 134/85
--- NOTE | 2019-01-02 08:33 | UC ---
Skin Complaint HPI - HPI Summary HPI Summary: 33 year old female presents after awakening with a swollen upper lip this morning. She denies any other sx, no rash, difficulty swallowing nor difficulty breathing. She denies any trauma to the area. She did try to squeeze a pimple above her upper lip yesterday evening and this morning. Also, her daughter is on Cefdinir and she could have come in contact with the medication (patient is allergic to Ceclor). She is not on any new medications, not on an MISTY inhibitor and is not allergic to any foods nor had new food exposure. She otherwise feels well. - History of Current Complaint Chief Complaint: UCSkin Time Seen by Provider: 01/02/19 08:16 Stated Complaint: SWOLLEN LIP Hx Obtained From: Patient Hx Last Menstrual Period: current ?: No Onset/Duration: Sudden Onset, Lasting Hours Skin Exposure Onset/Duration: Hours Ago Timing: Constant Onset Severity: Mild Current Severity: Mild Pain Intensity: 2 Location: Face - Upper lip Aggravating Factor(s): Nothing Alleviating Factor(s): Nothing Associated Signs & Symptoms: Positive: Negative Related History: Other: - possible exposure to daughter's cephalosporin. - Allergy/Home Medications Allergies/Adverse Reactions: Allergies Allergy/AdvReac Type Severity Reaction Status Date / Time cefaclor [From Ceclor] Allergy Hives Verified 01/02/19 08:17 PMH/Surg Hx/FS Hx/Imm Hx Previously Healthy: Yes Other History Of: Negative For: HIV, Hepatitis B, Hepatitis C, Anticoagulant Therapy - Surgical History Surgical History: Yes Surgery Procedure, Year, and Place: EAR TUBES CHILD, ORAL SURGERY FOR WISDOM TEETH - Family History Known Family History: Positive: Cardiac Disease, Hypertension - Social History Lives: With Family Alcohol Use: Rare Substance Use Type: None Smoking Status (MU): Never Smoked Tobacco - Immunization History Most Recent Influenza Vaccination: no Most Recent Tetanus Shot: 03/24/18 Review of Systems All Other Systems Reviewed And Are Negative: Yes Constitutional: Positive: Negative Skin: Positive: Other - Swelling upper lip. Eyes: Positive: Negative ENT: Positive: Negative Respiratory: Positive: Negative Cardiovascular: Positive: Negative Gastrointestinal: Positive: Negative Genitourinary: Positive: Negative Motor: Positive: Negative Neurovascular: Positive: Negative Musculoskeletal: Positive: Negative Neurological: Positive: Negative Psychological: Positive: Negative Is Patient Immunocompromised?: No Physical Exam Triage Information Reviewed: Yes Appearance: Well-Appearing, No Pain Distress, Well-Nourished Vital Signs: Initial Vital Signs Temp 97.2 F 01/02/19 08:18 Pulse 86 01/02/19 08:18 Resp 17 01/02/19 08:18 BP 134/85 01/02/19 08:18 Pulse Ox 100 01/02/19 08:18 Vital Signs Reviewed: Yes Eye Exam: Normal Eyes: Positive: Conjunctiva Clear ENT: Positive: Pharynx normal, TMs normal, Uvula midline, Other - Mild swelling midline upper lip, below small pimple. Mildly tender, slight erythema. Dental Exam: Normal Neck exam: Normal Neck: Positive: Supple, Nontender, No Lymphadenopathy Respiratory Exam: Normal Respiratory: Positive: Lungs clear, Normal breath sounds, No respiratory distress Cardiovascular Exam: Normal Cardiovascular: Positive: RRR, No Murmur, Brisk Capillary Refill Abdominal Exam: Normal Abdomen Description: Positive: Nontender, Soft Musculoskeletal Exam: Normal Neurological Exam: Normal Psychological Exam: Normal Course/Dx - Course Course Of Treatment: Swollen upper lip, possibly exposed to daughter's cephalosporin or beginning of cellulitis from attempting to squeeze a pimple. - Differential Diagnoses - Skin Complaint Differential Diagnoses: Allergic Reaction, Cellulitis - Diagnoses Provider Diagnosis: Allergic reaction caused by a drug Discharge - Sign-Out/Discharge Documenting (check all that apply): Patient Departure All imaging exams completed and their final reports reviewed: No Studies - Discharge Plan Condition: Stable Disposition: HOME Prescriptions: Doxycycline Hyclate 100 mg PO BID #20 tablet Fluconazole 150 MG TAB* [Diflucan 150 MG TAB*] 150 mg PO ONCE #1 tablet Patient Education Materials: Antibiotic Medication Allergy (ED) Referrals: Mariann Valdez [Primary Care Provider] - Additional Instructions: Take antihistamine Zyrtec 10mg daily until rash resolves. Avoid exposure to cephalosporin antibiotic. Follow-up at Urgent Care or physician if symptoms persist or worsen or if rash/difficulty breathing develops. - Billing Disposition and Condition Condition: STABLE Disposition: Home
== END 2019-01-02 09:00 | disposition home or self-care (01) ==
LOC: UCCORT 08:04
DX: T36.1X1A Poisoning by cephalosporins and other beta-lactam antibiotics, accidental (unintentional), initial encounter (principal); R22.0 Localized swelling, mass and lump, head; Y92.9 Unspecified place or not applicable
CPT/HCPCS: 99212; G0463

== ENCOUNTER 2019-04-19 12:30 | Emergency (ER) | payer BC, OTHER ==
--- NOTE | 2019-04-19 13:48 | UC ---
Throat Pain/Nasal Eugenio HPI - HPI Summary HPI Summary: Pt presents with c/o nasal congestion, malaise, sinus pressure and pain X 10 days. - History of Current Complaint Chief Complaint: UCRespiratory Stated Complaint: COLD SYMPTOMS,CAPUTO Time Seen by Provider: 04/19/19 13:26 Hx Obtained From: Patient Hx Last Menstrual Period: 04/13/19 ?: No Onset/Duration: Gradual Onset, Lasting Days, Still Present, Worse Since - onset Severity: Moderate Pain Intensity: 5 Cough: None Associated Signs & Symptoms: Positive: Sinus Discomfort - Epiglottits Risk Factors Epiglottis Risk Factors: Negative - Allergies/Home Medications Allergies/Adverse Reactions: Allergies Allergy/AdvReac Type Severity Reaction Status Date / Time cefaclor [From [facility]] Allergy Hives Verified 04/19/19 13:12 PMH/Surg Hx/FS Hx/Imm Hx Previously Healthy: Yes Other History Of: Negative For: HIV, Hepatitis B, Hepatitis C, Anticoagulant Therapy - Surgical History Surgical History: Yes Surgery Procedure, Year, and Place: EAR TUBES CHILD, ORAL SURGERY FOR WISDOM TEETH - Family History Known Family History: Positive: Cardiac Disease, Hypertension - Social History Occupation: Employed Full-time Lives: With Family Alcohol Use: Rare Substance Use Type: None Smoking Status (MU): Never Smoked Tobacco Have You Smoked in the Last Year: No - Immunization History Most Recent Influenza Vaccination: no Most Recent Tetanus Shot: 03/24/18 Vaccination Up to Date: Yes Review of Systems All Other Systems Reviewed And Are Negative: Yes Constitutional: Positive: Fatigue Skin: Positive: Negative Eyes: Positive: Negative ENT: Positive: Sinus Congestion, Sinus Pain/Tenderness Respiratory: Positive: Negative Cardiovascular: Positive: Negative Gastrointestinal: Positive: Negative Genitourinary: Positive: Negative Motor: Positive: Negative Neurovascular: Positive: Negative Musculoskeletal: Positive: Negative Neurological: Positive: Headache Psychological: Positive: Negative Is Patient Immunocompromised?: No Physical Exam Triage Information Reviewed: Yes Appearance: Ill-Appearing Vital Signs: Initial Vital Signs Temp 97.9 F 04/19/19 13:12 Pulse 82 04/19/19 13:12 Resp 16 04/19/19 13:12 Pulse Ox 99 04/19/19 13:12 Vital Signs Reviewed: Yes Eye Exam: Normal ENT: Positive: Nasal congestion, Sinus tenderness Dental Exam: Normal Neck exam: Normal Respiratory Exam: Normal Cardiovascular Exam: Normal Musculoskeletal Exam: Normal Neurological Exam: Normal Psychological Exam: Normal Skin Exam: Normal Throat Pain/Nasal Course/Dx - Differential Dx/Diagnosis Differential Diagnosis/HQI/PQRI: Otitis Media, Sinusitis, URI Provider Diagnosis: Sinusitis Discharge ED - Sign-Out/Discharge Documenting (check all that apply): Patient Departure All imaging exams completed and their final reports reviewed: No Studies - Discharge Plan Condition: Stable Disposition: HOME Prescriptions: Azithromycin TAB* [Zithromax TAB (Z-BENNY) 250 mg #6 tabs] 2 tab PO .TODAY, THEN 1 DAILY #1 benny Fluconazole 150 MG TAB* [Diflucan 150 MG TAB*] 150 mg PO UC ONCE #2 tablet Patient Education Materials: Decongestant/Expectorant (By mouth), Sinusitis (ED ) Referrals: Mariann Valdez [Primary Care Provider] - If Needed - Billing Disposition and Condition Condition: STABLE Disposition: Home
== END 2019-04-19 13:57 | disposition home or self-care (01) ==
LOC: UCCORT 12:30
DX: J32.9 Chronic sinusitis, unspecified (principal); R53.81 Other malaise; Z88.1 Allergy status to other antibiotic agents
CPT/HCPCS: 99212; G0463

== ENCOUNTER 2019-07-11 09:25 | Emergency (ER) | payer OTHER ==
[2019-07-11 11:27] VITALS: BP 122/78
--- NOTE | 2019-07-11 11:30 | UC ---
UC General HPI - HPI Summary HPI Summary: Patient is 34 year old , who present today to the urgent care with fatigue and dizziness for past 10 days. She feeling dizzy and tired, sleeping more, extreme fatigue, for 10 days. feels like she is more forgetful. history of PTSD. cyst under right arm is getting bigger and the patient is nervous because there is a family history of breast cancer. Denies any chest pain or shortness of breath, heart racing, fever, ear pain. No nausea vomiting diarrhea or constipation. Has been tolerating by mouth well. Had a head cold 2 weeks ago. She reports that if she is standing for a long time she fails a little dizzy and has to sit down. She has had no blood work done for past 3 years. Her last appointment with her primary care doctor was in February. Not sure of her vitamin D levels. Currently not taking any medication. Also reports noticing a cyst in her left axilla- no redness or pain or drainage. Denies any abnormal findings on her breasts - History of Current Complaint Chief Complaint: UCDizziness Stated Complaint: CYST/FATIGUE/SLEEPING MORE Time Seen by Provider: 07/11/19 11:09 Hx Obtained From: Patient Hx Last Menstrual Period: 07/04/19 Pain Intensity: 0 - Allergy/Home Medications Allergies/Adverse Reactions: Allergies Allergy/AdvReac Type Severity Reaction Status Date / Time cefaclor [From [facility]] Allergy Hives Verified 07/11/19 11:09 PMH/Surg Hx/FS Hx/Imm Hx - Additional Past Medical History Additional PMH: Past Medical History : PTSD, neuropathy Past Surgical History: No Past History of Procedure Family History : non contributory Social History : Occasional alcohol, non smoker, no drug use. Works in school Previously Healthy: Yes Other History Of: Negative For: HIV, Hepatitis B, Hepatitis C, Anticoagulant Therapy - Surgical History Surgical History: Yes Surgery Procedure, Year, and Place: EAR TUBES CHILD, ORAL SURGERY FOR WISDOM TEETH - Family History Known Family History: Positive: Cardiac Disease, Hypertension - Social History Alcohol Use: Rare Substance Use Type: None Smoking Status (MU): Never Smoked Tobacco Have You Smoked in the Last Year: No - Immunization History Most Recent Influenza Vaccination: no Most Recent Tetanus Shot: 03/24/18 Vaccination Up to Date: Yes Review of Systems All Other Systems Reviewed And Are Negative: Yes Constitutional: Positive: Fatigue Skin: Positive: Other - Cyst noted in the left axilla Eyes: Positive: Negative ENT: Positive: Negative, Other - Dizziness Respiratory: Positive: Negative Cardiovascular: Positive: Negative Gastrointestinal: Positive: Negative Genitourinary: Positive: Negative Motor: Positive: Negative Neurovascular: Positive: Negative Musculoskeletal: Positive: Negative Neurological: Positive: Negative Psychological: Positive: Negative Is Patient Immunocompromised?: No Physical Exam - Summary Physical Exam Summary: Physical Exam: Const: Appears well. No signs of apparent distress present. Alert and oriented x 3. Musculo: Walks with a normal gait. Head/Face: Atraumatic, normocephalic on inspection. Eyes: EOMI and PERRLA in both eyes. Conjunctivae clear. No discharge noted ENT: Hearing normal, TM normal appearing bilaterally, slightly bulging , non erythematous . No tenderness to palpation on maxillary and frontal sinus. No pharyngeal erythema or exudates . Uvula is midline. No cervical or submandibular lymphadenopathy noted. Respiratory: Respirations are unlabored. Lungs clear to auscultation bilaterally, no wheezing , rhonchi or rales noted . CVS: Regular rate and Rhythm, S1S2 normal , no murmurs identified. Extremities: Peripheral circulation is grossly normal. Pulses 2+ Abdomen : Soft non tender , nondistended , Bowel sounds present . No guarding , rebound tenderness or rigidity noted. Skin: Small follicular cyst noted in left axilla. No redness or drainage noted nontender to palpate. Neuro: Cranial nerves II to XII intact, motor and sensory intact. DTR Intact bilaterally. Mood is normal. Affect is normal. Triage Information Reviewed: Yes Vital Signs: Initial Vital Signs Temp 98 F 07/11/19 11:11 Pulse 74 07/11/19 11:11 Resp 18 07/11/19 11:11 BP 122/78 07/11/19 11:11 Pulse Ox 100 07/11/19 11:11 Vital Signs Reviewed: Yes Diagnostics - EKG Cardiac Rate: NL Cardiac Rhythm: Sinus: Normal Ectopy: PVCs ST Segment: Normal EKG Comparison: Other Summary of EKG Findings: normal sinus rythm, HR in 70's, No YOSELYN, Normal KS and Normal QRS, Normal axis. PVC noted. Course/Dx - Course Course Of Treatment: EKG: normal sinus rythm, HR in 70's, No YOSELYN, Normal KS and Normal QRS, Normal axis. PVC noted. Symptoms can be secondary to anemia or vitamin D deficiency or any thyroid problems. We discussed that she will need blood work for further evaluation. She declined any blood work today and will follow up with her primary care doctor next week to get the blood work done. Her left axillary cyst appears to be a small follicular cyst and that can be monitored for now. She has a family history of breast cancer in her mother and is a scheduled to get a mammogram this year. She has not noticed any abnormal findings on her breast . I advised her to schedule mammogram as soon as possible. - Diagnoses Provider Diagnosis: Dizziness, Fatigue, Follicular cyst of skin Discharge ED - Sign-Out/Discharge Documenting (check all that apply): Patient Departure All imaging exams completed and their final reports reviewed: No Studies - Discharge Plan Condition: Stable Disposition: HOME Patient Education Materials: Weakness (ED), Fatigue (ED) Referrals: Mariann Valdez [Primary Care Provider] - 2 Days Additional Instructions: Maintain hydration Trial of meclizine 25 mg upto 3 times/day over the counter . Follow up with your primary care doctor in 2 days for blood work and further evaluation Patients blood pressure slightly high in Urgent care today and prehypertensive range , plan follow up with PCP for better control Return to Urgent care / ER if symptoms get worse. - Billing Disposition and Condition Condition: STABLE Disposition: Home
== END 2019-07-11 12:30 | disposition home or self-care (01) ==
LOC: UCCORT 09:25
DX: R42 Dizziness and giddiness (principal); R53.83 Other fatigue; L72.9 Follicular cyst of the skin and subcutaneous tissue, unspecified; G62.9 Polyneuropathy, unspecified; Z88.1 Allergy status to other antibiotic agents
CPT/HCPCS: 93005; 99212; G0463